=== PATIENT | male | born 1990 | race Asian ===

== ENCOUNTER 2016-05-22 23:53 | Emergency (ER) | payer MEDICAID ==
[~2016-05-22] VITALS: Ht 167.6 cm; Wt 70.3 kg
[2016-05-23] MEDS ORDERED: SODIUM CHLORIDE 0.9% 1,000 ML IV ONE (07:14)
[2016-05-23] MEDS ORDERED: cefTRIAXone 1GM/50ML D5W 50 ML IV ONE (07:15)
[2016-05-23] MEDS ORDERED: NALBUPHINE HCL 10 MG/1ml INJECTION IV ONE ×2 (07:45→12:15)
[2016-05-23] MEDS ORDERED: PROMETHAZINE HCL 25 MG/ML 1ML IV ONE (07:45)
[2016-05-23 07:52] LABS: Basophils # (auto) 0 uL; Eosinophils # (auto) 0 uL; Eosinophils % (auto) 0.3 % (0.0-7.0); Lymphocytes % (auto) 9.8 % (10.0-50.0); Mean Corpuscular Hgb Conc. 32.7 g/dL (32.0-36.0); Mean Corpuscular Volume 85.8 fL (80.0-100.0); Mean Platelet Volume 8.3 fL (7.4-10.4); Monocytes # (auto) 0.4 uL; Neutrophils # (auto) 8.9 uL; Neutrophils % (auto) 85.9 % (37.0-80.0); Platelet Count (auto) 324 10^3/uL (140-450); Red Cell Distribution Width 13.2 % (11.6-16.0); White Blood Cell 10.4 10^3/uL (4.4-10.8)
[2016-05-23 08:28] LABS: BUN/Creatinine Ratio 13.8; Calcium 8.9 mg/dL (8.5-10.1); Magnesium 2.2 mg/dL (1.6-2.6); Potassium 3.8 mmol/L (3.5-5.1)
[2016-05-23] MEDS ORDERED: TETANUS-DIPTH-ACEL PERTUSSIS 0.5ML SYRG IM ONE (13:00)
[2016-05-23 13:29] VITALS: BP 122/82
== END 2016-05-23 11:32 | disposition short-term general hospital, planned readmission (82) ==
LOC: ER 23:58
DX: S01.111A Laceration without foreign body of right eyelid and periocular area, initial encounter (principal); S02.31XA Fracture of orbital floor, right side, initial encounter for closed fracture; Y09 Assault by unspecified means; Y99.9 Unspecified external cause status; Y92.89 Other specified places as the place of occurrence of the external cause; Z23 Encounter for immunization
CPT/HCPCS: 36415; 70450; 70486; 80048; 83735; 85025; 90471; 90715; 96365; 96375; 96376; 99285; J0696; J2300; J2550; J7030

== ENCOUNTER 2016-06-27 19:42 | Emergency (ER) | payer MEDICAID ==
[~2016-06-27] VITALS: Ht 167.6 cm; Wt 72.6 kg
[2016-06-27 20:05] VITALS: BP 161/113
[2016-06-27 21:01] LABS: Urine Bilirubin Negative (Negative); Urine Blood Negative /uL (Negative); Urine Color Yellow (Yellow); Urine Glucose Normal (Normal); Urine Ketone Negative (Negative); Urine Nitrite Negative (Negative); Urine RBC <1 /hpf (0 - 3); Urine Squamous Epithelial Cell FEW /hpf (<5); Urine Urobilinogen Normal (Negative); Urine pH 6.5 (5.0-8.0)
[2016-06-27 21:04] LABS: Albumin 4.5 g/dL (3.4-5.0); BUN/Creatinine Ratio 15.3; Calcium 9.4 mg/dL (8.5-10.1); Magnesium 2.4 mg/dL (1.6-2.6); Potassium 3.8 mmol/L (3.5-5.1); Total Protein 8.4 g/dL (6.4-8.2)
[2016-06-27 22:51] LABS: Basophils # (auto) 0 uL; DEFINITIVE VIEW TRANSMISSION; Eosinophils # (auto) 0 uL; Eosinophils % (auto) 0.1 % (0.0-7.0); Hemoglobin 17.7 g/dL (13.5-17.5); Lymphocytes # (auto) 1.3 uL; Lymphocytes % (auto) 9.8 % (10.0-50.0); Mean Corpuscular Hemoglobin 28.9 pg (28.0-32.0); Mean Corpuscular Hgb Conc. 33.3 g/dL (32.0-36.0); Mean Corpuscular Volume 86.7 fL (80.0-100.0); Mean Platelet Volume 8.9 fL (7.4-10.4); Monocytes # (auto) 0.7 uL; Monocytes % (auto) 5.4 % (0.0-12.0); Neutrophils # (auto) 11.6 uL; Neutrophils % (auto) 84.7 % (37.0-80.0); Platelet Count (auto) 371 10^3/uL (140-450); Red Cell Distribution Width 13.1 % (11.6-16.0); White Blood Cell 13.6 10^3/uL (4.4-10.8)
== END 2016-06-27 23:30 | disposition left against medical advice (07) ==
LOC: ER 19:47
DX: R11.2 Nausea with vomiting, unspecified (principal); Z53.21 Procedure and treatment not carried out due to patient leaving prior to being seen by health care provider
CPT/HCPCS: 36415; 71020; 80053; 81001; 83735; 85025